=== PATIENT | male | born 1995 | race Caucasian/White ===

== ENCOUNTER 2018-02-13 02:49 | Emergency (ER) | payer OTHER ==
[2018-02-13] MEDS ORDERED: SODIUM CHLORIDE 0.9% 1,000 ML IV STA (02:59)
[2018-02-13 03:02] VITALS: TEMP 98.6
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
[2018-02-13] MEDS ORDERED: NALOXONE 0.4 MG/ML 10 ML VIAL IVP PRN (03:18)
--- NOTE | 2018-02-13 03:21 | CT ---
EXAMINATION TYPE: CT brain litoine wo con DATE OF EXAM: 02/13/2018 COMPARISON: None HISTORY: seizure CT DLP: 1395.50 mGycm Automated exposure control for dose reduction was used. TECHNIQUE: CT scan of the head and cervical spine are performed without contrast. FINDINGS: There is prominent cisterna magna on the left side which is probably normal variation. Ve ntricles have normal size. There is no mass effect nor midline shift. There is no sign of intracrania l hemorrhage. There is a prominent lambdoid suture on the left side. Clinical significance is not marilin ar. Previous surgery is possible. The calvarium is otherwise intact. Cervical vertebra have normal spacing and alignment. Posterior elements are intact. Facet joints appe ar normal. There is no evidence of a fracture. The skull base is intact. There is minimal pleural thi ckening at the right posterior lung apex. IMPRESSION: Negative CT scan of the brain. No evidence of traumatic injury of the brain. There is noted ethmoid a nd left maxillary sinusitis. Negative CT scan cervical spine.
[2018-02-13 03:23] LABS: ALT 20 U/L (21-72); AST 22 U/L (17-59); Acetaminophen <10.0 ug/mL; Albumin 4.1 g/dL (3.5-5.0); Alcohol <10 mg/dL; Alkaline Phosphatase 53 U/L (38-126); Anion Gap 9 mmol/L; Blood Urea Nitrogen 12 mg/dL (9-20); Calcium 8.8 mg/dL (8.4-10.2); Carbon Dioxide 24 mmol/L (22-30); Chloride 108 mmol/L (98-107); Glucose 90 mg/dL (74-99); Potassium 4.2 mmol/L (3.5-5.1); Salicylate <1.0 mg/dL; Sodium 141 mmol/L (137-145); Total Bilirubin 0.4 mg/dL (0.2-1.3); Total Protein 6.9 g/dL (6.3-8.2)
[2018-02-13] MEDS ORDERED: SODIUM CHLORIDE 0.9% 1,000 ML IV ONE ×2 (03:23→03:30)
[2018-02-13 03:24] LABS: Basophils % (A) 0 %; Eosinophils # (A) 0.2 k/uL (0-0.7); Eosinophils % (A) 3 %; HCT 42.4 % (39.0-53.0); HGB 13.9 gm/dL (13.0-17.5); Lymphocytes # (A) 2.4 k/uL (1.0-4.8); Lymphocytes % (A) 37 %; MCH 29.4 pg (25.0-35.0); MCHC 32.8 g/dL (31.0-37.0); MCV 89.6 fL (80.0-100.0); Mean Platelet Volume 6.9; Monocytes # (A) 0.3 k/uL (0-1.0); Monocytes % (A) 4 %; Neutrophils # (A) 3.4 k/uL (1.3-7.7); Neutrophils % (A) 52 %; Platelet Count 183 k/uL (150-450); RBC 4.73 m/uL (4.30-5.90); RDW 13.8 % (11.5-15.5); WBC 6.7 k/uL (4.0-11.0)
[2018-02-13] MEDS ORDERED: PROPOFOL 1,000 MG in EMPTY BAG 1 BAG IV ONE (03:55)
[2018-02-13] MEDS ORDERED: PROPOFOL 10 MG/ML 20 ML VIAL IV STA (03:58)
[2018-02-13 04:51] LABS: Appearance,Urine Clear (Clear); Bilirubin,Urine Negative (Negative); Blood,Urine Negative (Negative); Color,Urine Colorless; Glucose,Urine (UA) Negative (Negative); Ketones,Urine Negative (Negative); Leukocyte Esterase,Urine Negative (Negative); Nitrite,Urine Negative (Negative); PH, Urine 5.5 (5.0-8.0); Protein,Urine Negative (Negative); Specific Gravity,Urine 1.005 (1.001-1.035); Urobilinogen,Urine <2.0 mg/dL (<2.0)
[2018-02-13 05:00] LABS: Amphetamine Screen,Urine Not Detected (NotDetected); Barbiturate Screen,Urine Not Detected (NotDetected); Benzodiazepines Screen,Urine Not Detected (NotDetected); Cocaine Screen,Urine Not Detected (NotDetected); Methadone Screen, Urine Not Detected (NotDetected); Opiate Screen,Urine Not Detected (NotDetected); Oxycodone Screen, Urine Not Detected (NotDetected); Phencyclidine Screen,Urine Not Detected (NotDetected); Tricyclic Antidepressant,Urine Detected (NotDetected); Urn Cannabinoid Scrn Detected (NotDetected)
[2018-02-13 05:01] VITALS: BP 132/90; PULSE 91; RESP 12
== END 2018-02-13 04:15 | disposition other institution (70) ==
LOC: EC 02:49
DX: R40.20 Unspecified coma (principal); E87.2 Acidosis; F17.200 Nicotine dependence, unspecified, uncomplicated; Z87.828 Personal history of other (healed) physical injury and trauma
CPT/HCPCS: 36415; 94002; 93005; 80053; 83605; 85025; 81003; 80306; 83520 ×2; 72125; 70450; 99291; 31500; 96374; 96361 ×2; G0480; J2310; J2704 ×2; 80320

== ENCOUNTER 2018-05-06 20:43 | Inpatient (IN) | payer OTHER ==
[2018-05-06] MEDS ORDERED: SODIUM CHLORIDE 0.9% 1,000 ML IV STA (20:46)
[2018-05-06 20:52] LABS: Glucose,Whole Blood 115 mg/dL (75-99)
[2018-05-06] MEDS: LORazepam 2 MG/ML INJ IV STA ×2 (21:00→21:03)
[2018-05-06] MEDS ORDERED: levETIRAcetam IV 1,000 MG in SALINE 1 100ML.BAG IVPB STA (21:10)
[2018-05-06 21:22] LABS: Basophils # (A) 0.1 k/uL (0-0.2); Basophils % (A) 0 %; Eosinophils # (A) 0.3 k/uL (0-0.7); Eosinophils % (A) 2 %; HCT 51.1 % (39.0-53.0); HGB 16.5 gm/dL (13.0-17.5); Lymphocytes # (A) 2.9 k/uL (1.0-4.8); Lymphocytes % (A) 18 %; MCH 29.3 pg (25.0-35.0); MCHC 32.3 g/dL (31.0-37.0); MCV 90.8 fL (80.0-100.0); Mean Platelet Volume 6.3; Monocytes # (A) 0.7 k/uL (0-1.0); Monocytes % (A) 4 %; Neutrophils # (A) 11.9 k/uL (1.3-7.7); Neutrophils % (A) 74 %; Platelet Count 227 k/uL (150-450); RBC 5.63 m/uL (4.30-5.90); RDW 13.6 % (11.5-15.5)
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
[2018-05-06 21:27] LABS: Prothrombin Time 10.3 sec (9.0-12.0)
[2018-05-06 21:36] LABS: ALT 24 U/L (21-72); AST 29 U/L (17-59); Acetaminophen 15.9 ug/mL; Albumin 4.8 g/dL (3.5-5.0); Alkaline Phosphatase 75 U/L (38-126); Anion Gap 12 mmol/L; Blood Urea Nitrogen 14 mg/dL (9-20); Calcium 9.2 mg/dL (8.4-10.2); Carbon Dioxide 26 mmol/L (22-30); Chloride 105 mmol/L (98-107); Glucose 121 mg/dL (74-99); Salicylate <1.0 mg/dL; Sodium 143 mmol/L (137-145); Total Bilirubin 0.4 mg/dL (0.2-1.3); Total Protein 8.1 g/dL (6.3-8.2)
[2018-05-06 21:41] LABS: Alcohol 112 mg/dL
--- NOTE | 2018-05-06 21:49 | CT ---
EXAMINATION TYPE: CT brain cspine wo con DATE OF EXAM: 05/06/2018 COMPARISON: 02/13/2018 HISTORY: pt found unresponsive, possible drug OD CT DLP: 1403.1 mGycm. Automated Exposure Control for Dose Reduction was Utilized. TECHNIQUE: CT scan of the head and cervical spine are performed without contrast. FINDINGS: There is no acute intracranial hemorrhage, mass effect, or midline shift identified. The ventricles and sulci are within normal limits in size. Incidental note is made of a major cisterna m agna. Polypoid mucosal thickening is seen within the left maxillary sinus, mild mucosal thickening is present within the ethmoid sinuses and moderate within the right maxillary sinus. Remaining paranasa l sinuses and mastoid air cells are well aerated. Cervical spine is visualized in its entirety from C1 through upper thoracic levels and demonstrates s atisfactory alignment without evidence of acute fracture or dislocation. Prevertebral soft tissue ap pears within normal limits. The C1-C2 articulation is unremarkable. IMPRESSION: 1. There is no acute fracture or dislocation evident in the cervical spine. 2. No acute intracranial hemorrhage, mass effect, or midline shift is seen. 3. Moderate paranasal sinus disease.
--- NOTE | 2018-05-06 22:34 | XR ---
EXAM: XR Right Shoulder Complete, 2 or More Views CLINICAL HISTORY: ITS.REASON XR Reason: Pain TECHNIQUE: Two or more views of the right shoulder. COMPARISON: No relevant prior studies available. FINDINGS: Bones/joints: No acute fracture. No dislocation. Soft tissues: Unremarkable. IMPRESSION: No acute findings.
[2018-05-06] MEDS ORDERED: NALOXONE 0.4 MG/ML 1 ML VIAL IV PRN (23:29)
[2018-05-06] MEDS ORDERED: ACETAMINOPHEN TAB 325 MG TAB PO PRN (23:29)
[2018-05-06 23:46] LABS: Appearance,Urine Clear (Clear); Bilirubin,Urine Negative (Negative); Blood,Urine Negative (Negative); Color,Urine Yellow; Glucose,Urine (UA) Negative (Negative); Ketones,Urine Negative (Negative); Leukocyte Esterase,Urine Negative (Negative); Nitrite,Urine Negative (Negative); Protein,Urine Trace (Negative); Specific Gravity,Urine 1.028 (1.001-1.035); Urobilinogen,Urine <2.0 mg/dL (<2.0)
[2018-05-06 23:58] LABS: Amphetamine Screen,Urine Not Detected (NotDetected); Barbiturate Screen,Urine Not Detected (NotDetected); Benzodiazepines Screen,Urine Detected (NotDetected); Cocaine Screen,Urine Not Detected (NotDetected); Methadone Screen, Urine Not Detected (NotDetected); Opiate Screen,Urine Detected (NotDetected); Oxycodone Screen, Urine Detected (NotDetected); Phencyclidine Screen,Urine Not Detected (NotDetected); Tricyclic Antidepressant,Urine Not Detected (NotDetected); Urn Cannabinoid Scrn Detected (NotDetected)
[2018-05-07 03:33] VITALS: BMI 23.7
[2018-05-07] MEDS: SODIUM CHLORIDE 0.9% 1,000 ML IV SCH ×2 (03:57→17:51)
[2018-05-07] MEDS ORDERED: PROMETHAZINE 25 MG TAB PO PRN (11:31)
--- NOTE | 2018-05-07 11:40 | P.CN ---
Psychiatric Consult - . Consult date: 05/07/18 Consult:: 05/07/18 11:33 Reason For Consultation: Accidental overdose on percocet HPI: Mr. Trevino is 22 yo single male admitted here unconcious due to accidental overdose on percocet. Found him very shaky and nervous going through active alcohol and opiate withdrawals. Reports that he was not suicidal and it was an accident. He reports feeling depressed for long time but never were suicidal in past. He went through multiple surgeries including knee, shoulder and brain surgery. He has suffered traumatic brain injury at work. He has been presribed pain pills at age 18 years and later he started buying off the street. He has been abusing it since. He has been drinking heavy for last few years. Denies any symptoms of psychoses, mood swings to me. MSE : AAO x 4. Fairr eye contact. Speech soft tone. Mood anxious and depressed with congruent affect. Denies any suicidal or homicidal ideation. No psychoses. Insight and judgment fair Major Depression Alcohol withdrawals Opiate Withdrawals Will start wellbutrin XL 150 mg po qam, Neurontin 300 mg po TID. Start clonidine, phenergan, imodium for opiate withdrawals and Librium 25 mg po TID with ativan 1 mg q 2hrly PRN for alcohol withdrawals. Patient is not suicidal at this time. Agreed to come to psych unit, once medically stable for further care. Will transfer to psych unit possibly tomorrow.
[2018-05-07] MEDS ORDERED: KETOROLAC 30 MG/ML 1 ML VIAL IVP PRN (12:04)
[2018-05-07] MEDS: buPROPion XL 150 MG TAB.ER.24H PO SCH (12:13)
--- NOTE | 2018-05-07 12:39 | XR ---
EXAMINATION TYPE: XR chest 2V DATE OF EXAM: 05/07/2018 COMPARISON: None INDICATION: Sternal pain TECHNIQUE: Frontal and lateral views of the chest are obtained. FINDINGS: The heart size is normal. The pulmonary vasculature is normal. The lungs are clear. No pneumothorax is evident. No acute fractures are identified. IMPRESSION: 1. No acute pulmonary process.
[2018-05-07] MEDS: GABAPENTIN 300 MG CAP PO SCH ×2 (14:52→21:08)
[2018-05-07] MEDS: chlordiazePOXIDE 25 MG CAP PO SCH ×2 (14:55→21:07)
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
[2018-05-07] MEDS: NICOTINE 21MG/24HR PATCH TRANSDERM SCH (17:51)
[2018-05-07] MEDS: cloNIDine HCL 0.1 MG TAB PO SCH (21:07)
[2018-05-07] MEDS: LORazepam 1 MG TAB PO PRN (23:03)
[2018-05-08] MEDS: SODIUM CHLORIDE 0.9% 1,000 ML IV SCH ×2 (06:24→17:42)
[2018-05-08 07:50] LABS: ALT 22 U/L (21-72); AST 16 U/L (17-59); Albumin 3.6 g/dL (3.5-5.0); Alkaline Phosphatase 66 U/L (38-126); Anion Gap 5 mmol/L; Blood Urea Nitrogen 12 mg/dL (9-20); Calcium 8.8 mg/dL (8.4-10.2); Carbon Dioxide 30 mmol/L (22-30); Chloride 105 mmol/L (98-107); Glucose 93 mg/dL (74-99); Potassium 4.1 mmol/L (3.5-5.1); Sodium 140 mmol/L (137-145); Total Bilirubin 0.4 mg/dL (0.2-1.3); Total Protein 6.5 g/dL (6.3-8.2)
[2018-05-08] MEDS: LORazepam 1 MG TAB PO PRN ×5 (07:54→20:36)
[2018-05-08] MEDS: NICOTINE 21MG/24HR PATCH TRANSDERM SCH (07:54)
[2018-05-08] MEDS: levETIRAcetam 500 MG TAB PO SCH ×2 (07:54→21:40)
[2018-05-08] MEDS: chlordiazePOXIDE 25 MG CAP PO SCH ×3 (07:54→23:04)
[2018-05-08] MEDS: GABAPENTIN 300 MG CAP PO SCH ×3 (07:54→23:04)
[2018-05-08] MEDS: cloNIDine HCL 0.1 MG TAB PO SCH ×2 (07:55→21:40)
[2018-05-08] MEDS: buPROPion XL 150 MG TAB.ER.24H PO SCH (07:56)
[2018-05-08] MEDS: LOPERAMIDE 2 MG CAP PO PRN (07:58)
[2018-05-08 08:21] LABS: Basophils % (A) 0 %; Eosinophils # (A) 0.3 k/uL (0-0.7); Eosinophils % (A) 3 %; HCT 44.5 % (39.0-53.0); HGB 14.5 gm/dL (13.0-17.5); Lymphocytes # (A) 1.7 k/uL (1.0-4.8); Lymphocytes % (A) 17 %; MCH 29.9 pg (25.0-35.0); MCHC 32.6 g/dL (31.0-37.0); MCV 91.5 fL (80.0-100.0); Monocytes # (A) 0.7 k/uL (0-1.0); Monocytes % (A) 7 %; Neutrophils # (A) 7.2 k/uL (1.3-7.7); Neutrophils % (A) 72 %; Platelet Count 192 k/uL (150-450); RBC 4.87 m/uL (4.30-5.90); RDW 13.5 % (11.5-15.5); WBC 10.1 k/uL (4.0-11.0)
--- NOTE | 2018-05-08 11:17 | P.CNOR ---
History of Present Illness - [facility] Consult date: 05/08/18 Consult reason: joint pain History of present illness: Patient is a 22-year-old male who was admitted to the hospital on 05/06/2018 with an apparent polysubstance overdose. Patient was admitted to the medical surgical floor, he's been evaluated by internal medicine and psychiatric. During the hospital stay he mentioned right shoulder pain, apparently he did have a seizure while in the emergency room. Patient is a history of a right shoulder surgery he states back in January 2018 at [facility]. Initial x-rays were done of the right shoulder, images demonstrated no acute fractures or dislocations. Patient states that he fell in August 2017 that resulted in a skull fracture and scapular fracture, which ultimately led to surgery on the shoulder in January 2018. Patient cannot remove the exact procedure description. He was evaluated at bedside today, is resting comfortably. He notes pain in the shoulder ever since the initial injury and also since surgery. Drug screen is notable for opiates and other substances. Patient states he never went through physical therapy for the shoulder, he constantly clicks and pops over the superior and lateral aspect. Currently patient denies any other orthopedic complaints. Review of Systems Constitutional: Reports as per HPI Past Medical History Past Medical History: Seizure Disorder Additional Past Medical History / Comment(s): Close head injury, concussion. mar 2017 [facility] a fall [facility] fractured skull had a blood clot in left lower part of brain, brain bleed, fractured right scapula, fractured rib cage,cyst on heart, transferred to [facility],. History of Any Multi-Drug Resistant Organisms: None Reported Past Surgical History: Orthopedic Surgery Additional Past Surgical History / Comment(s): Right shoulder sugery, right knee. Past Anesthesia/Blood Transfusion Reactions: No Reported Reaction Past Psychological History: Anxiety, Depression Smoking Status: Current every day smoker Past Alcohol Use History: Heavy Additional Past Alcohol Use History / Comment(s): last 4 days admits to drinking 1 liter and a fifth per day of alcohol Past Drug Use History: Marijuana Additional Drug Use History / Comment(s): smokes marijuana daily, since 15 been smoking marijuana, and since 15 been abusing narcotics/pills, heroin abuse in past and cocaine in past unable to tell me when last time though - Past Family History Mother Additional Family Medical History / Comment(s): a couple years ago of heroin overdose Brother(s) Additional Family Medical History / Comment(s): a couple years from heroin overdose Father Additional Family Medical History / Comment(s): in [facility] a couple years ago Medications and Allergies Home Medications Medication Instructions Recorded Confirmed Type Acetaminophen Tab [Tylenol Tab] 1,000 mg PO Q8H PRN 05/08/18 05/08/18 History levETIRAcetam [Keppra] 1,000 mg PO Q12HR 05/08/18 05/08/18 History Allergies Allergy/AdvReac Type Severity Reaction Status Date / Time No Known Allergies Allergy Verified 05/08/18 09:16 Physical Examination Right upper extremity: No obvious open lesions or sores present, no significant areas of erythema or soft tissue swelling Healed portal sites from previous arthroscopy noted on the anterior lateral posterior part of the shoulder Patient is able to abduct and forward elevate above 90 Patient notes most discomfort over the superior and lateral aspect of the shoulder, he notes a clicking sensation when elevating over 90 Strength is intact, slight weakness is appreciated with abduction and forward elevation Sensation to light touch throughout the extremities intact Dorsal pedis pulses 2+ Results - Labs Labs: Abnormal Lab Results - Last 24 Hours (Table) 05/08/18 Range/Units 07:12 AST 16 L (17-59) U/L H & H 05/06/18 05/08/18 Range/Units 20:54 07:12 Hgb 16.5 14.5 (13.0-17.5) gm/dL Hct 51.1 44.5 (39.0-53.0) % Coagulation 05/06/18 Range/Units 20:54 INR 1.0 (<1.2) Result Diagrams: 05/08/18 07:12 05/08/18 07:12 - Diagnostic results Shoulder x-ray: report reviewed, image reviewed Assessment and Plan Plan: Imaging: Multiple views of the right shoulder obtained, images demonstrate no acute fractures or dislocations. Evidence of likely Bankart repair on the glenoid present, also presence previous Hill-Sachs on the greater tuberosity Assessment: 1. Right shoulder pain 2. History of right shoulder arthroscopy 3. Multiple medical comorbidities Plan: I was able to discuss the case, including the physical exam findings and imaging studies might attending Dr. Salinas. No orthopedic surgical intervention needed at this time. Recommend conservative management, basic range of motion exercises with [id number] Tylenol anti-inflammatories as needed for discomfort Recommend follow-up with Dr. Salinas in the outpatient setting for further workup and treatment options Other auditor medical claims recommendations Time with Patient: Less than 30
[2018-05-08] MEDS ORDERED: HALOPERIDOL LACTATE 5 MG/ML 1 ML VIAL IM PRN (18:56)
--- NOTE | 2018-05-08 20:27 | PN ---
PROGRESS NOTE DATE OF SERVICE: 05/08/2018 This 22-year-old gentleman who was admitted with overdose with alcohol plus opiates and THC is being closely monitored. Patient complains of tiredness and possibly going through withdrawals at this time. The patient also complaining of right shoulder pain. Patient had a previous history of surgery by Dr. Kunz. Dr. Salinas evaluated the patient closely. No surgical intervention is planned at this time. No chest pain. No palpitations. No fever. EXAM: Alert and oriented x2. Pulse is 118, blood pressure 110/60, respiration 20, temperature 97.9, pulse ox 94% on room air. HEENT: Conjunctivae normal. Neck: No jugular venous distention. CARDIOVASCULAR: S1, S2. RESPIRATORY: Breath sounds diminished in the bases. A few scattered rhonchi and crackles. ABDOMEN is soft, nontender. LEGS are no edema, no swelling. CENTRAL NERVOUS SYSTEM: No focal deficits. LABS: CBC within normal limits. THC positive. ASSESSMENT: 1. Status post overdose of alcohol plus opiates plus THC possibly. 2. Change in mental status, metabolic encephalopathy secondary to multiple overdose. 3. Possible acute delirium tremens. 4. Increased WBC possibly reactive. 5. Increased random blood sugar. 6. Seizure disorder. 7. History of closed-head injury. 8. History of concussion. 9. History of brain bleed. 10.History of fracture right scapula. 11.History of anxiety and depression. 12.History of nicotine dependence. RECOMMENDATIONS AND DISCUSSION: Recommend to continue current medications, management, symptomatic treatment. I recommend the DT precautions, Ativan, Haldol p.r.n. Guarded prognosis because of multiple complex medical issues. Further recommendations to follow. MMODL / IJN: [id number] /
[2018-05-08 22:28] VITALS: RESP 16
[2018-05-09] MEDS: LORazepam 1 MG TAB PO PRN ×4 (04:39→16:02)
[2018-05-09 05:31] VITALS: BP 104/63; PULSE 60; TEMP 98
[2018-05-09] MEDS: SODIUM CHLORIDE 0.9% 1,000 ML IV SCH (05:49)
[2018-05-09] MEDS: cloNIDine HCL 0.1 MG TAB PO SCH (09:39)
[2018-05-09] MEDS: GABAPENTIN 300 MG CAP PO SCH ×2 (09:39→16:04)
[2018-05-09] MEDS: chlordiazePOXIDE 25 MG CAP PO SCH ×2 (09:39→16:04)
[2018-05-09] MEDS: NICOTINE 21MG/24HR PATCH TRANSDERM SCH (09:39)
[2018-05-09] MEDS: levETIRAcetam 500 MG TAB PO SCH ×2 (09:39→09:40)
[2018-05-09] MEDS: buPROPion XL 150 MG TAB.ER.24H PO SCH (09:39)
[2018-05-09] MEDS: LOPERAMIDE 2 MG CAP PO PRN (09:45)
--- NOTE | 2018-05-09 12:06 | DS ---
DISCHARGE SUMMARY DATE OF SERVICE: 05/09/2018 FINAL DIAGNOSES: 1. Status post overdose alcohol, opiates plus THC, possibly. 2. Change in mental status. 3. Metabolic acidosis secondary to multiple overdose. 4. Depression, anxiety. 5. Acute delirium tremens, improved. 6. Increased WBC possibly reactive. 7. Increased random blood sugar. 8. Seizure disorder. 9. History of closed-head injury. 10.History of concussion. 11.History of brain bleed. 12.History of fracture right scapula. 13.History of anxiety, depression. 14.History of nicotine dependence. DISCHARGE DISPOSITION: The patient will be discharged in a stable condition with guarded prognosis. Patient will be dcd home. please staff noted for details. HISTORY OF PRESENT ILLNESS: This is a 22-year-old gentleman with past medical history admitted with overdose and as well as multiple medical problems. Patient also had significant EtOH, also DTs are noted. Patient was treated symptomatically. Patient improved significantly. Psychiatry saw the patient. On exam, vitals are stable. CARDIOVASCULAR SYSTEM: S1, S2. ABDOMEN: Soft. NERVOUS SYSTEM: No focal deficits. Discharge recommendations are as follows: Follow up with the primary physician, Dr. Cee Ingram in 1 to 2 days after discharge from his inpatient psych. MEDICATION: 1. Keppra 1000 mg p.o. b.i.d. 2. Tylenol 1000 mg q.8 p.r.n. TAD / JUAN PABLO: [id number] / MTDD
== END 2018-05-09 16:40 | disposition home or self-care (01) | DRG 917 ==
LOC: EC 20:43 → 3NMEDONC 23:29 → UNDOADMOB 05-07 → 1SOBS 05-07 → 3NMEDONC 05-07 14:04
PROVIDERS: ADMIT Hospitalist; ATTEND Hospitalist
DX: T51.0X1A Toxic effect of ethanol, accidental (unintentional), initial encounter (principal); G93.41 Metabolic encephalopathy; F10.231 Alcohol dependence with withdrawal delirium; E87.2 Acidosis; T40.2X1A Poisoning by other opioids, accidental (unintentional), initial encounter; T40.7X1A Poisoning by cannabis (derivatives), accidental (unintentional), initial encounter; G40.909 Epilepsy, unspecified, not intractable, without status epilepticus; M25.511 Pain in right shoulder; F11.10 Opioid abuse, uncomplicated; F17.200 Nicotine dependence, unspecified, uncomplicated; F41.9 Anxiety disorder, unspecified; F32.9 Major depressive disorder, single episode, unspecified; Z87.820 Personal history of traumatic brain injury; Z79.899 Other long term (current) drug therapy; Z71.6 Tobacco abuse counseling; Z87.81 Personal history of (healed) traumatic fracture; Z81.1 Family history of alcohol abuse and dependence; Z81.3 Family history of other psychoactive substance abuse and dependence
CPT/HCPCS: 36415; 70450; 71046; 72125; 80053; 80306; 80320; 81003; 83520; 85025; 85610; 96361; 96374; 96375; 99291

== ENCOUNTER 2018-12-21 20:32 | Inpatient (IN) | payer OTHER ==
[2018-12-21 20:44] LABS: Glucose,Whole Blood 98 mg/dL (75-99)
[2018-12-21] MEDS ORDERED: SODIUM CHLORIDE 0.9% 500 ML 500 ML IV STA (20:50)
[2018-12-21 21:03] LABS: Basophils # (A) 0.1 k/uL (0-0.2); Basophils % (A) 1 %; Eosinophils # (A) 0.4 k/uL (0-0.7); Eosinophils % (A) 4 %; HCT 45.1 % (39.0-53.0); HGB 15.3 gm/dL (13.0-17.5); Lymphocytes # (A) 3.9 k/uL (1.0-4.8); Lymphocytes % (A) 42 %; MCH 31.5 pg (25.0-35.0); MCHC 33.9 g/dL (31.0-37.0); MCV 92.8 fL (80.0-100.0); Mean Platelet Volume 5.5; Monocytes # (A) 0.5 k/uL (0-1.0); Monocytes % (A) 5 %; Neutrophils # (A) 4.2 k/uL (1.3-7.7); Neutrophils % (A) 46 %; Platelet Count 257 k/uL (150-450); RBC 4.85 m/uL (4.30-5.90); RDW 13.5 % (11.5-15.5); WBC 9.3 k/uL (3.8-10.6)
[2018-12-21 21:17] LABS: ALT 28 U/L (21-72); AST 33 U/L (17-59); Acetaminophen <10.0 ug/mL; African American GFR (CKD) >90 (>60 ml/min/1.73 sqM); Albumin 4.5 g/dL (3.5-5.0); Alkaline Phosphatase 56 U/L (38-126); Anion Gap 11 mmol/L; Blood Urea Nitrogen 16 mg/dL (9-20); Calcium 9.4 mg/dL (8.4-10.2); Carbon Dioxide 25 mmol/L (22-30); Chloride 113 mmol/L (98-107); Glucose 104 mg/dL (74-99); Non-African American GFR(CKD) >90 (>60 ml/min/1.73 sqM); Potassium 4.3 mmol/L (3.5-5.1); Sodium 149 mmol/L (137-145); Total Bilirubin 0.2 mg/dL (0.2-1.3); Total Protein 7.6 g/dL (6.3-8.2)
[2018-12-21 21:20] LABS: Alcohol 270 mg/dL
[2018-12-21] MEDS ORDERED: SODIUM CHLORIDE 0.9% 1,000 ML IV STA (21:41)
--- NOTE | 2018-12-21 22:20 | ED ---
General Adult HPI - General Chief complaint: Seizure Stated complaint: seizure Time Seen by Provider: 12/21/18 20:47 Source: family, EMS, RN notes reviewed, old records reviewed Mode of arrival: EMS Limitations: no limitations - History of Present Illness Initial comments: 23-year-old male patient presents to ED for seizure. Patient friend in room provide history. Reports that they were drinking alcohol. Reports the patient had 2 seizures of unknown duration tonic-clonic like and then one on the EMS rig on the way to the hospital. Friend reports that with seizures were on the couch and for short duration. Denies any trauma to the head or neck. Does not know duration of the seizures. Patient has a history of seizure disorders and takes multiple antiepileptics. Denies any trauma to head or neck that was seen. Denies any other injury. Denies any drug use. Further history taking is limited as patient is postictal and sedated from alcohol and 10 of Versed which was administered to him in EMS on the way here. - Related Data Home Medications Medication Instructions Recorded Confirmed levETIRAcetam [Keppra] 1,000 mg PO Q12H 05/08/18 12/21/18 Clindamycin HCl [Cleocin] 300 mg PO Q6H 12/21/18 12/21/18 Divalproex Sodium [Depakote] 500 mg PO Q8H 12/21/18 12/21/18 Elavil(Unknown Dose) 1 tab PO HS 12/21/18 12/21/18 Naproxen 500 mg PO BID 12/21/18 12/21/18 Allergies Allergy/AdvReac Type Severity Reaction Status Date / Time No Known Allergies Allergy Verified 12/21/18 22:48 Review of Systems ROS Statement: Those systems with pertinent positive or pertinent negative responses have been documented in the HPI. ROS Other: All systems not noted in ROS Statement are negative. Past Medical History Past Medical History: Seizure Disorder Additional Past Medical History / Comment(s): Close head injury, concussion. mar [facility] skull had a blood clot in left lower part of brain, brain bleed, fractured right scapula, fractured rib cage,cyst on heart, transferred to [facility],. History of Any Multi-Drug Resistant Organisms: None Reported Past Surgical History: Orthopedic Surgery Additional Past Surgical History / Comment(s): Right shoulder sugery, right knee. Past Anesthesia/Blood Transfusion Reactions: No Reported Reaction Past Psychological History: Anxiety, Depression Smoking Status: Current every day smoker Past Alcohol Use History: Heavy Past Drug Use History: Marijuana - Past Family History Mother Additional Family Medical History / Comment(s): a couple years ago of heroin overdose Brother(s) Additional Family Medical History / Comment(s): a couple years from heroin overdose Father Additional Family Medical History / Comment(s): in [facility] a couple years ago General Exam - General Exam Comments Initial Comments: Constitutional: NAD, AOX0 HEENT: NC/AT, trachea midline, neck supple, no lymphadenopathy. Posterior pharynx non erythematous, without exudates. External ears appear normal, without discharge. Mucous membranes moist. EOM intact. There is no scleral icterus. No pallor noted. Cardiopulmonary: RRR, no murmurs, rubs or gallops, no JVD noted. Lungs CTAB in anterior and posterior mejias. No peripheral edema. Abdominal exam: Abdomen soft and non-distended. Abdomen non-tender to palpation in all 4 quadrants. Bowel sounds active in LLQ. No hepatosplenomegaly. No ecchymosis Neuro: No raccon eyes, no kevin sign, no hemotympanum. MSK: Limitations: no limitations Course Vital Signs 12/21/18 12/21/18 12/21/18 20:35 20:47 21:01 Temperature 97 F L Pulse Rate 120 H 113 H 114 H Respiratory 18 18 18 Rate Blood Pressure 120/61 103/53 O2 Sat by Pulse 91 L 96 96 Oximetry 12/21/18 12/21/18 21:59 22:56 Temperature Pulse Rate 113 H 101 H Respiratory 18 15 Rate Blood Pressure 90/67 96/43 O2 Sat by Pulse 96 97 Oximetry Medical Decision Making - Medical Decision Making 23-year-old male patient presents to ED after having reported 3 seizures tonic- clonic in nature. Patient is a known epileptic. Was drinking alcohol in excess today. She is provided by friend who is accompanying patient in the ER. Denies any trauma to head or neck. Patient vital signs are stable upon arrival to the ER. Patient was initially combative with staff. Patient was administered 10 of Versed by EMS in route to department. Patient became very sedated and unresponsive.. Investigations are significant for lactic acid 2.3 and alcohol 270. Patient signed out to Dr. Morton pending CT. Patient be admitted for seizure, alcohol intoxication and neurology evaluation. Discussed and patient seen by Dr. Morton. - Lab Data Result diagrams: 12/21/18 20:42 12/21/18 20:42 Lab Results 12/21/18 12/21/18 12/21/18 Range/Units 20:42 20:42 20:42 WBC 9.3 (3.8-10.6) k/uL RBC 4.85 (4.30-5.90) m/uL Hgb 15.3 (13.0-17.5) gm/dL Hct 45.1 (39.0-53.0) % MCV 92.8 (80.0-100.0) fL MCH 31.5 (25.0-35.0) pg MCHC 33.9 (31.0-37.0) g/dL RDW 13.5 (11.5-15.5) % Plt Count 257 (150-450) k/uL Neutrophils % 46 % Lymphocytes % 42 % Monocytes % 5 % Eosinophils % 4 % Basophils % 1 % Neutrophils # 4.2 (1.3-7.7) k/uL Lymphocytes # 3.9 (1.0-4.8) k/uL Monocytes # 0.5 (0-1.0) k/uL Eosinophils # 0.4 (0-0.7) k/uL Basophils # 0.1 (0-0.2) k/uL Sodium 149 H (137-145) mmol/L Potassium 4.3 (3.5-5.1) mmol/L Chloride 113 H (98-107) mmol/L Carbon Dioxide 25 (22-30) mmol/L Anion Gap 11 mmol/L BUN 16 (9-20) mg/dL Creatinine 0.93 (0.66-1.25) mg/dL Est GFR (CKD-EPI)AfAm >90 (>60 ml/min/1.73 sqM) Est GFR (CKD-EPI)NonAf >90 (>60 ml/min/1.73 sqM) Glucose 104 H (74-99) mg/dL POC Glucose (mg/dL) 98 (75-99) mg/dL POC Glu Lockstitch Tunnel El[employer] Operator ID Virgen Emerson Plasma Lactic Acid [place] (0.7-2.0) mmol/L Calcium 9.4 (8.4-10.2) mg/dL Total Bilirubin 0.2 (0.2-1.3) mg/dL AST 33 (17-59) U/L ALT 28 (21-72) U/L Alkaline Phosphatase 56 (38-126) U/L Total Protein 7.6 (6.3-8.2) g/dL Albumin 4.5 (3.5-5.0) g/dL Urine Color Urine Appearance (Clear) Urine pH (5.0-8.0) Ur Specific [place] (1.001-1.035) Urine Protein (Negative) Urine Glucose (UA) (Negative) Urine Ketones (Negative) Urine Blood (Negative) Urine Nitrite (Negative) Urine Bilirubin (Negative) Urine Urobilinogen (<2.0) mg/dL Ur Leukocyte Esterase (Negative) Salicylates 1.0 mg/dL Urine Opiates Screen (NotDetected) Ur Oxycodone Screen (NotDetected) Urine Methadone Screen (NotDetected) Ur Propoxyphene Screen (NotDetected) Acetaminophen <10.0 ug/mL Ur Barbiturates Screen (NotDetected) Valproic Acid 28.4 ug/mL U Tricyclic Antidepress (NotDetected) Ur Phencyclidine Scrn (NotDetected) Ur Amphetamines Screen (NotDetected) U Methamphetamines Scrn (NotDetected) U Benzodiazepines Scrn (NotDetected) Urine Cocaine Screen (NotDetected) U Marijuana (THC) Screen (NotDetected) Serum Alcohol 270 H* mg/dL 12/21/18 12/21/18 Range/Units 20:42 22:00 WBC (3.8-10.6) k/uL RBC (4.30-5.90) m/uL Hgb (13.0-17.5) gm/dL Hct (39.0-53.0) % MCV (80.0-100.0) fL MCH (25.0-35.0) pg MCHC (31.0-37.0) g/dL RDW (11.5-15.5) % Plt Count (150-450) k/uL Neutrophils % % Lymphocytes % % Monocytes % % Eosinophils % % Basophils % % Neutrophils # (1.3-7.7) k/uL Lymphocytes # (1.0-4.8) k/uL Monocytes # (0-1.0) k/uL Eosinophils # (0-0.7) k/uL Basophils # (0-0.2) k/uL Sodium (137-145) mmol/L Potassium (3.5-5.1) mmol/L Chloride (98-107) mmol/L Carbon Dioxide (22-30) mmol/L Anion Gap mmol/L BUN (9-20) mg/dL Creatinine (0.66-1.25) mg/dL Est GFR (CKD-EPI)AfAm (>60 ml/min/1.73 sqM) Est GFR (CKD-EPI)NonAf (>60 ml/min/1.73 sqM) Glucose (74-99) mg/dL POC Glucose (mg/dL) (75-99) mg/dL POC Glu Lockstitch Tunnel Elastic Operator ID Plasma Lactic Acid [place] 2.3 H* (0.7-2.0) mmol/L Calcium (8.4-10.2) mg/dL Total Bilirubin (0.2-1.3) mg/dL AST (17-59) U/L ALT (21-72) U/L Alkaline Phosphatase (38-126) U/L Total Protein (6.3-8.2) g/dL Albumin (3.5-5.0) g/dL Urine Color Colorless Urine Appearance Clear (Clear) Urine pH 6.0 (5.0-8.0) Ur Specific [place] 1.003 (1.001-1.035) Urine Protein Negative (Negative) Urine Glucose (UA) Negative (Negative) Urine Ketones Negative (Negative) Urine Blood Negative (Negative) Urine Nitrite Negative (Negative) Urine Bilirubin Negative (Negative) Urine Urobilinogen <2.0 (<2.0) mg/dL Ur Leukocyte Esterase Negative (Negative) Salicylates mg/dL Urine Opiates Screen Not Detected (NotDetected) Ur Oxycodone Screen Not Detected (NotDetected) Urine Methadone Screen Not Detected (NotDetected) Ur Propoxyphene Screen Not Detected (NotDetected) Acetaminophen ug/mL Ur Barbiturates Screen Not Detected (NotDetected) Valproic Acid ug/mL U Tricyclic Antidepress Detected H (NotDetected) Ur Phencyclidine Scrn Not Detected (NotDetected) Ur Amphetamines Screen Not Detected (NotDetected) U Methamphetamines Scrn Not Detected (NotDetected) U Benzodiazepines Scrn Detected H (NotDetected) Urine Cocaine Screen Not Detected (NotDetected) U Marijuana (THC) Screen Not Detected (NotDetected) Serum Alcohol mg/dL - EKG Data -: EKG Interpreted by Me (and Dr. Morton) EKG Comments: Ventricular rate 1:15,. For 166, QRS 114, QT/QTC 322/459. Sinus tachycardia, otherwise normal EKG. Disposition Clinical Impression: Seizure, Alcohol intoxication Disposition: ADMITTED IP TO THIS [facility] Condition: Serious Is patient prescribed a controlled substance at d/c from ED?: No Referrals: Cee Ingram MD [Primary Care Provider] - 1-2 days
[2018-12-21 22:21] LABS: Appearance,Urine Clear (Clear); Bilirubin,Urine Negative (Negative); Blood,Urine Negative (Negative); Color,Urine Colorless; Glucose,Urine (UA) Negative (Negative); Ketones,Urine Negative (Negative); Leukocyte Esterase,Urine Negative (Negative); Nitrite,Urine Negative (Negative); Protein,Urine Negative (Negative); Specific Gravity,Urine 1.003 (1.001-1.035); Urobilinogen,Urine <2.0 mg/dL (<2.0)
[2018-12-21 22:39] LABS: Amphetamine Screen,Urine Not Detected (NotDetected); Barbiturate Screen,Urine Not Detected (NotDetected); Benzodiazepines Screen,Urine Detected (NotDetected); Cocaine Screen,Urine Not Detected (NotDetected); Methadone Screen, Urine Not Detected (NotDetected); Opiate Screen,Urine Not Detected (NotDetected); Oxycodone Screen, Urine Not Detected (NotDetected); Phencyclidine Screen,Urine Not Detected (NotDetected); Tricyclic Antidepressant,Urine Detected (NotDetected); Urn Cannabinoid Scrn Not Detected (NotDetected)
--- NOTE | 2018-12-21 23:14 | CT ---
EXAMINATION TYPE: CT brain wo con DATE OF EXAM: 12/21/2018 COMPARISON: 05/06/2018 HISTORY: Seizure, Hx closed head injury, brain bleed. CT DLP: 1158.4 mGycm. Automated Exposure Control for Dose Reduction was Utilized. TECHNIQUE: CT scan of the head is performed without contrast. FINDINGS: Ventricles have normal size. There is no mass effect nor midline shift. There is no sign of intracranial hemorrhage. The calvarium is intact. There is mucus retention cyst left maxillary sinus . There is mild mucosal thickening in the ethmoid air cells. I see no bony destructive process. IMPRESSION: Minimal sinusitis. Otherwise negative exam. No change compared to old exam. There is clearing of mini mal right side sphenoid sinusitis compared to old exam.
[2018-12-21] MEDS ORDERED: NALOXONE 0.4 MG/ML 1 ML VIAL IV PRN (23:16)
[2018-12-22] MEDS: SODIUM CHLORIDE 0.9% 1,000 ML IV SCH ×3 (00:24→20:12)
[2018-12-22] MEDS ORDERED: KETOROLAC 30 MG/ML 1 ML VIAL IVP STA (02:50)
[2018-12-22] MEDS ORDERED: LORazepam 2 MG/ML INJ IV PRN ×4 (07:06)
[2018-12-22] MEDS ORDERED: HYDROmorphone 0.5 MG/0.5 ML SYRINGE IVP STA (07:08)
[2018-12-22] MEDS: levETIRAcetam 500 MG TAB PO SCH ×2 (11:06→21:46)
[2018-12-22] MEDS: DIVALPROEX 500 MG TABLET.DR PO SCH ×2 (11:06→17:19)
[2018-12-22] MEDS: CLINDAMYCIN 150 MG CAP PO SCH ×2 (11:06→17:19)
[2018-12-22] MEDS: NAPROXEN 250 MG TAB PO SCH ×2 (11:06→20:07)
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
[2018-12-22 11:27] LABS: Basophils # (A) 0.1 k/uL (0-0.2); Basophils % (A) 2 %; Eosinophils # (A) 0.3 k/uL (0-0.7); Eosinophils % (A) 5 %; HCT 42.5 % (39.0-53.0); Lymphocytes # (A) 2.2 k/uL (1.0-4.8); Lymphocytes % (A) 42 %; MCH 31.1 pg (25.0-35.0); MCV 94.2 fL (80.0-100.0); Mean Platelet Volume 6.1; Monocytes # (A) 0.4 k/uL (0-1.0); Monocytes % (A) 7 %; Neutrophils # (A) 2.3 k/uL (1.3-7.7); Neutrophils % (A) 43 %; Platelet Count 210 k/uL (150-450); RBC 4.51 m/uL (4.30-5.90); RDW 13.8 % (11.5-15.5); WBC 5.3 k/uL (3.8-10.6)
[2018-12-22 11:44] LABS: African American GFR (CKD) >90 (>60 ml/min/1.73 sqM); Alcohol 34 mg/dL; Anion Gap 6 mmol/L; Blood Urea Nitrogen 13 mg/dL (9-20); Calcium 8.6 mg/dL (8.4-10.2); Carbon Dioxide 26 mmol/L (22-30); Chloride 111 mmol/L (98-107); Glucose 103 mg/dL (74-99); Non-African American GFR(CKD) >90 (>60 ml/min/1.73 sqM); Potassium 4.6 mmol/L (3.5-5.1); Sodium 143 mmol/L (137-145)
[2018-12-22] MEDS ORDERED: THIAMINE 100 MG TAB PO SCH (17:30)
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
[2018-12-22] MEDS ORDERED: LORazepam 0.5 MG TAB PO PRN (19:41)
[2018-12-22 19:52] LABS: African American GFR (CKD) >90 (>60 ml/min/1.73 sqM); Anion Gap 6 mmol/L; Blood Urea Nitrogen 12 mg/dL (9-20); Calcium 8.7 mg/dL (8.4-10.2); Carbon Dioxide 26 mmol/L (22-30); Chloride 108 mmol/L (98-107); Glucose 115 mg/dL (74-99); Non-African American GFR(CKD) >90 (>60 ml/min/1.73 sqM); Potassium 4.1 mmol/L (3.5-5.1); Sodium 140 mmol/L (137-145)
[2018-12-22] MEDS ORDERED: AMITRIPTYLINE HCL 50 MG TAB PO SCH (21:00)
[2018-12-22] MEDS: HYDROcodone/APAP 5-325MG 1 EACH TAB PO PRN (21:45)
[2018-12-23] MEDS: CLINDAMYCIN 150 MG CAP PO SCH ×2 (01:58→06:40)
[2018-12-23] MEDS: DIVALPROEX 500 MG TABLET.DR PO SCH (01:59)
[2018-12-23 03:56] VITALS: PULSE 86
[2018-12-23] MEDS: HYDROcodone/APAP 5-325MG 1 EACH TAB PO PRN (06:39)
[2018-12-23] MEDS: SODIUM CHLORIDE 0.9% 1,000 ML IV SCH (06:42)
[2018-12-23 07:39] LABS: Basophils # (A) 0.1 k/uL (0-0.2); Basophils % (A) 1 %; Eosinophils # (A) 0.6 k/uL (0-0.7); Eosinophils % (A) 6 %; HCT 45.6 % (39.0-53.0); HGB 14.6 gm/dL (13.0-17.5); Lymphocytes # (A) 2.9 k/uL (1.0-4.8); Lymphocytes % (A) 33 %; MCH 30.2 pg (25.0-35.0); MCV 94.4 fL (80.0-100.0); Mean Platelet Volume 6.1; Monocytes # (A) 0.7 k/uL (0-1.0); Monocytes % (A) 8 %; Neutrophils # (A) 4.4 k/uL (1.3-7.7); Neutrophils % (A) 49 %; Platelet Count 216 k/uL (150-450); RBC 4.83 m/uL (4.30-5.90); RDW 13.4 % (11.5-15.5); WBC 8.8 k/uL (3.8-10.6)
[2018-12-23 07:43] VITALS: BP 127/76; RESP 16; TEMP 97.4
[2018-12-23 08:07] LABS: African American GFR (CKD) >90 (>60 ml/min/1.73 sqM); Anion Gap 6 mmol/L; Blood Urea Nitrogen 9 mg/dL (9-20); Carbon Dioxide 26 mmol/L (22-30); Chloride 108 mmol/L (98-107); Glucose 80 mg/dL (74-99); Non-African American GFR(CKD) >90 (>60 ml/min/1.73 sqM); Potassium 4.7 mmol/L (3.5-5.1); Sodium 140 mmol/L (137-145)
--- NOTE | 2018-12-25 16:16 | XR ---
EXAMINATION TYPE: XR shoulder complete RT DATE OF EXAM: 12/22/2018 CLINICAL HISTORY: Right shoulder pain with no known injury TECHNIQUE: Three views of the right shoulder are obtained. COMPARISON: 05/06/2018 FINDINGS: There is no acute fracture/dislocation evident in the right shoulder. The acromioclavicul ar and glenohumeral joint spaces appear within normal limits. Few marginal osteophytes of the acromio clavicular joint and inferior humeral head. Subcortical cyst formation is seen within the glenoid. Th e visualized ribs are intact and unremarkable. IMPRESSION: There is no acute fracture or dislocation in the right shoulder. Mild acromioclavicular and glenohumeral arthropathy.
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
== END 2018-12-23 08:23 | disposition left against medical advice (07) | DRG 101 ==
LOC: EC 20:32 → OBSVTOIN 12-22 00:27 → 4SSUR 12-22 00:27
PROVIDERS: ADMIT Internal Medicine; ATTEND Internal Medicine
DX: G40.409 Other generalized epilepsy and epileptic syndromes, not intractable, without status epilepticus (principal); E87.0 Hyperosmolality and hypernatremia; F10.229 Alcohol dependence with intoxication, unspecified; F17.210 Nicotine dependence, cigarettes, uncomplicated; F41.9 Anxiety disorder, unspecified; F32.9 Major depressive disorder, single episode, unspecified; R43.9 Unspecified disturbances of smell and taste; Z79.899 Other long term (current) drug therapy; Z87.820 Personal history of traumatic brain injury; Z81.3 Family history of other psychoactive substance abuse and dependence; Y90.8 Blood alcohol level of 240 mg/100 ml or more
CPT/HCPCS: 36415; 51702; 70450; 80048; 80053; 80164; 80177; 80306; 80320; 80329; 81003; 83520; 83605; 85025; 93005; 96360; 96361; 99285

== ENCOUNTER 2019-03-10 10:51 | Emergency (ER) | payer OTHER ==
[2019-03-10 11:34] VITALS: BP 106/66; PULSE 78; RESP 18; TEMP 97.9
--- NOTE | 2019-03-10 11:58 | ED ---
Skin/Abscess/FB HPI - General Chief complaint: Skin/Abscess/Foreign Body Stated complaint: Rash all over body Time Seen by Provider: 03/10/19 11:38 Source: patient, RN notes reviewed, old records reviewed Mode of arrival: ambulatory Limitations: no limitations - History of Present Illness Initial comments: is a 23-year-old male presents today with rash over his chest, arms and back his head and neck. Reports he was diagnosed with scabies 2 weeks ago. He is treated with oral medication at that time. Patient reports is continuing to have more areas of rash or lesions. Patient states that he's had no other significant complaint. - Related Data Home Medications Medication Instructions Recorded Confirmed levETIRAcetam [Keppra] 1,000 mg PO Q12H 05/08/18 12/21/18 Clindamycin HCl [Cleocin] 300 mg PO Q6H 12/21/18 12/21/18 Divalproex Sodium [Depakote] 500 mg PO Q8H 12/21/18 12/21/18 Naproxen 500 mg PO BID 12/21/18 12/21/18 Amitriptyline HCl [Elavil] 50 mg PO HS 12/22/18 12/22/18 LORazepam [Ativan] 0.25 mg PO BID PRN 12/22/18 12/22/18 Previous Rx's Medication Instructions Recorded Permethrin 5% Cream [Elimite] 1 applic TOPICAL WEEKLY #1 tube 03/10/19 diphenhydrAMINE HCL [Benadryl] 25 mg PO HS #12 tab 03/10/19 methylPREDNISolone Dose Pack 4 mg PO DIRECTED #21 package 03/10/19 [Medrol Dose Pack] Allergies Allergy/AdvReac Type Severity Reaction Status Date / Time tramadol Allergy Dyspnea Verified 03/10/19 11:43 Review of Systems ROS Statement: Those systems with pertinent positive or pertinent negative responses have been documented in the HPI. ROS Other: All systems not noted in ROS Statement are negative. Past Medical History Past Medical History: Seizure Disorder Additional Past Medical History / Comment(s): Close head injury, concussion. mar 2017 [facility] fractured skull had a blood clot in left lower part of brain, brain bleed, fractured right scapula, fractured rib cage,cyst on heart, transferred to [facility],. History of Any Multi-Drug Resistant Organisms: None Reported Past Surgical History: Orthopedic Surgery Additional Past Surgical History / Comment(s): Right shoulder sugery, right knee. Past Anesthesia/Blood Transfusion Reactions: No Reported Reaction Past Psychological History: Anxiety, Depression Smoking Status: Current every day smoker Past Alcohol Use History: Heavy Past Drug Use History: Marijuana - Past Family History Mother Additional Family Medical History / Comment(s): a couple years ago of heroin overdose Brother(s) Additional Family Medical History / Comment(s): a couple years from heroin overdose Father Additional Family Medical History / Comment(s): in [facility] a couple years ago General Exam - General Exam Comments Initial Comments: Physical 23-year-old male. Alert and oriented 3. Patient appears in no acute distress. Limitations: no limitations General appearance: alert, in no apparent distress Head exam: Present: atraumatic Eye exam: Present: normal appearance, PERRL, EOMI. Absent: scleral icterus, conjunctival injection, periorbital swelling ENT exam: Present: normal exam, mucous membranes moist Neck exam: Present: normal inspection Respiratory exam: Present: normal lung sounds bilaterally. Absent: respiratory distress, wheezes, rales, rhonchi, stridor Cardiovascular Exam: Present: regular rate, normal rhythm, normal heart sounds. Absent: systolic murmur, diastolic murmur, rubs, gallop, clicks GI/Abdominal exam: Present: soft, normal bowel sounds. Absent: distended, tenderness, guarding, rebound, rigid Extremities exam: Present: normal inspection, full ROM, normal capillary refill. Absent: tenderness, pedal edema, joint swelling, calf tenderness Back exam: Present: normal inspection Neurological exam: Present: alert, oriented X3, CN II-XII intact Psychiatric exam: Present: normal affect, normal mood Skin exam: Present: warm, dry, intact, normal color, rash (Patient has erythematous monitor millimeter papules over the back of the neck, axilla, trunk, forearms.) Course Vital Signs 03/10/19 11:29 Temperature 97.9 F Pulse Rate 78 Respiratory 18 Rate Blood Pressure 106/66 O2 Sat by Pulse 100 Oximetry Medical Decision Making - Medical Decision Making 23-year-old male presented today for eval for concern for scabies rash. Was treated 2 weeks with oral medication. He does continue to have some erythematous papules over his arm trunk and neck. He states that some new ones occur. I discussed at this time we can treat the Patient with permethrin cream, and use topical and histamine medication help with acute itching. Discussed treating all his clothing bedding in hot water. Discussed return parameters. Disposition Clinical Impression: Scabies Disposition: HOME SELF-CARE Condition: Good Instructions (If sedation given, give patient instructions): Scabies (ED) Additional Instructions: Patient advised to wash all bedding in hot water. Patient should take a shower tonight. Apply the cream over hairline and over her body. Sleeping clean sheets. Wash the cream off in the morning. Change the bedding again. Repeat treatment in one week. Taking the steroids and Benadryl for itching and inflammation. Prescriptions: diphenhydrAMINE HCL [Benadryl] 25 mg PO HS #12 tab Permethrin 5% Cream [Elimite] 1 applic TOPICAL WEEKLY #1 tube methylPREDNISolone Dose Pack [Medrol Dose Pack] 4 mg PO DIRECTED #21 package Is patient prescribed a controlled substance at d/c from ED?: No Referrals: Cee Ingram MD [Primary Care Provider] - 1-2 days Time of Disposition: 11:56
== END 2019-03-10 12:06 | disposition home or self-care (01) ==
LOC: EC 10:51
DX: B86 Scabies (principal); F41.9 Anxiety disorder, unspecified; F32.9 Major depressive disorder, single episode, unspecified; G40.909 Epilepsy, unspecified, not intractable, without status epilepticus; F17.200 Nicotine dependence, unspecified, uncomplicated; Z79.1 Long term (current) use of non-steroidal anti-inflammatories (NSAID); Z79.899 Other long term (current) drug therapy; Z87.828 Personal history of other (healed) physical injury and trauma; Z88.6 Allergy status to analgesic agent
CPT/HCPCS: 99283